=== PATIENT | female | born 1950 | race Caucasian/White ===

== ENCOUNTER 2021-01-19 18:17 | Inpatient (IN) | payer MEDICARE, SELFPAY ==
--- NOTE | 2021-01-19 03:22 | XRR_ITS ---
PROCEDURE INFORMATION: Exam: XR Chest Exam date and time: 01/19/2021 9:10 PM Age: 70 years old Clinical indication: Screening exam; Pre-operative exam; Other: Hip fracture TECHNIQUE: Imaging protocol: XR of the chest. Views: 1 view. COMPARISON: No relevant prior studies available. FINDINGS: Lungs: Unremarkable. No consolidation. Pleural spaces: Unremarkable. No pleural effusion. No pneumothorax. Heart/Mediastinum: Unremarkable. No cardiomegaly. Bones/joints: Unremarkable. XR/XR chest 1V portable [id number] IMPRESSION: No acute findings.
[2021-01-19 18:25] VITALS: BP 190/98; PULSE 78; RESP 16; TEMP 36.3; O2SAT 94; BMI 25.4
--- NOTE | 2021-01-19 19:08 | XRR_ITS ---
PROCEDURE INFORMATION: Exam: XR Left Femur Exam date and time: 01/19/2021 7:11 PM Age: 70 years old Clinical indication: Injury or trauma; Fall; Blunt trauma; Hip; Left TECHNIQUE: Imaging protocol: XR Left femur. Views: 2 views. COMPARISON: No relevant prior studies available. FINDINGS: Bones/joints: Moderate narrowing of the left hip joint space. 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 Soft tissues: Unremarkable. 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 No evidence for acute fracture.
[2021-01-19 19:35] LABS: Basophils # 0.1 10^3/uL (0.0-0.1); Basophils % 0.8 %; Eosinophils # 0.2 10^3/uL (0.0-0.8); Eosinophils % 2.9 %; Hematocrit 40.5 % (37.0-47.0); Hemoglobin 13.4 g/dL (11.5-15.3); Lymphocytes # 1.5 10^3/uL (0.8-4.8); Lymphocytes % 25.7 %; Mean Corpuscular HGB Conc 33.1 g/dL (30.0-36.0); Mean Corpuscular Hemoglobin 28.9 pg (28.0-34.0); Mean Corpuscular Volume 87.5 fL (81-99); Mean Platelet Volume 10.4 fL (7.4-10.4); Monocytes # 0.6 10^3/uL (0.2-0.9); Monocytes % 10.5 %; Neutrophils % 59.3 %; Nucleated Red Blood Cells % 0 %; Platelet Count 202 10^3/cmm (130-400); Red Blood Count 4.63 10^6/uL (4.1-5.3); Red Cell Distribution Width 12.4 % (12.1-15.1); White Blood Count 5.9 10^3/uL (4.0-10.0)
[2021-01-19] MEDS: ondansetron 2 mg/ML SDV 2 mL 4 MG IVP (19:39)
[2021-01-19] MEDS: fentaNYL 50 mcg/mL INJ 2mL IVP (19:39)
--- NOTE | 2021-01-19 19:39 | W.ED.FALL ---
HPI - Fall General: Chief Complaint: Fall Stated Complaint: FELL/LLE INJURY Time Seen by Provider: 01/19/21 18:51 History of Present Illness: MD complaint: fall Onset (ago): hour(s) Fall from: down stairs (#) (2) Fall witnessed: no Place fall occurred: home Loss of consciousness: None Prolonged down time: no Symptoms prior to fall: none Context: tripped/slipped Location of injury: pelvis Location of injury - extremities: Left: thigh Severity: moderate Quality: stabbing Associated symptoms-after fall: Reports difficulty walking; Denies abdominal pain, chest pain, headache(s) or numbness Review of Systems Const: Denies: fever(s) Card: Denies: chest pain Resp: Denies: dyspnea GI: Denies: abdominal pain Neuro: Reports: difficulty walking; Denies: headache(s) Physical Exam Const: COMMON NORMALS: no acute distress, patient oriented x3 and alert HENMT: COMMON NORMALS: normocephalic HEAD & SCALP: normocephalic Eye: COMMON NORMALS: Equal, round and reactive pupils present and EOMs intact bilaterally PUPIL: Yes Equal, round and reactive pupils present Chest: COMMONS NORMALS: normal inspection of the chest Resp: COMMON NORMALS: normal respiratory effort, No use of accessory muscles and clear to auscultation bilaterally AUSCULTATION: clear to auscultation bilaterally Cardio: COMMON NORMALS: regular rate and regular rhythm RATE: regular rate RHYTHM: regular rhythm GI: COMMON NORMALS: Normal to inspection, nondistended, normoactive bowel sounds present, Soft to palpation and no masses PALPATION: Yes Soft to palpation Extremity: LEFT LOWER EXTREMITY: Yes hip joint (+ log roll) Left hip: Yes palpation (tenderness) Neuro: COMMON NORMALS: patient oriented x3 SENSORIUM/ORIENTATION: Yes alert Course Consultations: Consultation #1: tony Consultation #2: rocio Vital Signs: Vital signs: Vital Signs Temperature 97.9 F 01/19/21 23:17 Pulse Rate 70 01/19/21 23:17 Respiratory Rate 20 H 01/19/21 23:17 Blood Pressure 152/74 01/19/21 23:17 Pulse Oximetry 93 01/19/21 23:17 MDM - Fall MDM Narrative: Medical decision making narrative: Initial x-ray is read as negative. There is a slight cortical disruption at the femoral neck with some haziness. CT ordered, and shows a nondisplaced femoral neck fracture. Consulted orthopedics from the ER. He will see tomorrow. Hospitalist will admit and see tonight. Lab Data: Labs: Lab Results 01/19/21 01/19/21 01/19/21 Range/Units 19:25 19:25 19:25 WBC 5.9 (4.0-10.0) 10^3/ uL RBC 4.63 (4.1-5.3) 10^6/u L Hgb 13.4 (11.5-15.3) g/dL Hct 40.5 (37.0-47.0) % MCV 87.5 (81-99) fL MCH 28.9 (28.0-34.0) pg MCHC 33.1 (30.0-36.0) g/dL RDW 12.4 (12.1-15.1) % Plt Count 202 (130-400) 10^3/c mm MPV 10.4 (7.4-10.4) fL Neut % (Auto) 59.3 % Lymph % (Auto) 25.7 % Baldwin % (Auto) 10.5 % Eos % (Auto) 2.9 % Baso % (Auto) 0.8 % Neut # (Auto) 3.50 (1.8-7.7) 10^3/u L Lymph # (Auto) 1.5 (0.8-4.8) 10^3/u L Baldwin # (Auto) 0.6 (0.2-0.9) 10^3/u L Eos # (Auto) 0.2 (0.0-0.8) 10^3/u L Baso # (Auto) 0.1 (0.0-0.1) 10^3/u L Nucleated RBC % (a uto) 0 % Nucleated RBCs # 0.0 /100WBC PT INR APTT Sodium 136 (136-145) mmol/L Potassium 4.9 (3.5-5.1) mmol/L Chloride 98 (98-107) mmol/L Carbon Dioxide 28 (22-29) mmol/L Anion Gap 14.9 (5-19) BUN 15 (8-23) mg/dL Creatinine 0.5 (0.5-0.9) mg/dL GFR Calculation Not Reportable Glucose 209 H (65-115) mg/dL Calculated Osmolal ity 289 (285-295) mOsm/k g Calcium 9.5 (8.5-10.5) mg/dL Total Bilirubin 0.3 (0.15-1.2) mg/dL AST 19 (0-32) U/L ALT 21 (0-33) U/L Alkaline Phosphata se 53 (35-105) IU/L Total Protein 7.5 (6.6-8.7) g/dL Albumin 4.4 (3.5-5.2) g/dL Globulin 3.1 (1.3-4.6) g/dL Urine Color Straw (Yellow) Urine Appearance Clear (CLEAR) Urine pH 7 (5-7) Ur Specific Gravit y 1.005 (1.005-1.030) Urine Protein Neg (Negative) Urine Glucose (UA) Trace H (Normal) Urine Ketones Negative (Negative) Urine Blood Neg (Negative) Urine Nitrate Negative (Negative) Urine Bilirubin Neg (Negative) Urine Urobilinogen Norm (Negative) mg/dL Ur Leukocyte Ela ase Negative (Negative) 01/19/21 01/19/21 Range/Units 20:28 20:46 WBC (4.0-10.0) 10^3/ uL RBC (4.1-5.3) 10^6/u L Hgb (11.5-15.3) g/dL Hct (37.0-47.0) % MCV (81-99) fL MCH (28.0-34.0) pg MCHC (30.0-36.0) g/dL RDW (12.1-15.1) % Plt Count (130-400) 10^3/c mm MPV (7.4-10.4) fL Neut % (Auto) % Lymph % (Auto) % Baldwin % (Auto) % Eos % (Auto) % Baso % (Auto) % Neut # (Auto) (1.8-7.7) 10^3/u L Lymph # (Auto) (0.8-4.8) 10^3/u L Baldwin # (Auto) (0.2-0.9) 10^3/u L Eos # (Auto) (0.0-0.8) 10^3/u L Baso # (Auto) (0.0-0.1) 10^3/u L Nucleated RBC % (a uto) % Nucleated RBCs # /100WBC PT Cancelled 13.30 INR Cancelled 0.98 APTT Cancelled 23.5 L Sodium (136-145) mmol/L Potassium (3.5-5.1) mmol/L Chloride (98-107) mmol/L Carbon Dioxide (22-29) mmol/L Anion Gap (5-19) BUN (8-23) mg/dL Creatinine (0.5-0.9) mg/dL GFR Calculation Glucose (65-115) mg/dL Calculated Osmolal ity (285-295) mOsm/k g Calcium (8.5-10.5) mg/dL Total Bilirubin (0.15-1.2) mg/dL AST (0-32) U/L ALT (0-33) U/L Alkaline Phosphata se (35-105) IU/L Total Protein (6.6-8.7) g/dL Albumin (3.5-5.2) g/dL Globulin (1.3-4.6) g/dL Urine Color (Yellow) Urine Appearance (CLEAR) Urine pH (5-7) Ur Specific Gravit y (1.005-1.030) Urine Protein (Negative) Urine Glucose (UA) (Normal) Urine Ketones (Negative) Urine Blood (Negative) Urine Nitrate (Negative) Urine Bilirubin (Negative) Urine Urobilinogen (Negative) mg/dL Ur Leukocyte Ela ase (Negative) Discharge Plan Discharge Patient Disposition: Admitted As Inpatient Admit Provider: Jessica Rico Clinical Impression: Hip fracture, left Qualifiers: Encounter type: initial encounter Fracture type: closed Qualified Code(s): S72.002A - Fracture of unspecified part of neck of left femur, initial encounter for closed fracture Condition: Stable Coding Level of Care Code ED Agricultural Engineering Technicians for [facility] Fwd Exam Comprehensive
[2021-01-19 19:41] VITALS: BP 126/68; PULSE 78; RESP 15; TEMP 36.8; O2SAT 99
[2021-01-19 19:42] LABS: Add Urine Microscopic? NO
[2021-01-19 19:43] LABS: Bilirubin Urine Neg (Negative); Blood Urine Neg (Negative); Charge for UA Resulting for Rev; Glucose Urine UA Trace (Normal); Ketones Urine Negative (Negative); Leukocyte Esterase Urine Negative (Negative); Nitrate Urine Negative (Negative); Protein Urine Neg (Negative); Specific Gravity, Urine 1.005 (1.005-1.030); Urine Appearance Clear (CLEAR); Urine Color Straw (Yellow); Urobilinogen Urine Norm (Negative); pH Urine 7 (5-7)
--- NOTE | 2021-01-19 19:45 | CTR_ITS ---
PROCEDURE INFORMATION: Exam: CT Pelvis Without Contrast; Skeletal Exam date and time: 01/19/2021 7:47 PM Age: 70 years old Clinical indication: Injury or trauma; Fall; Blunt trauma (contusions or hematomas); Left; Groin; Additional info: Fall left sided pain TECHNIQUE: Imaging protocol: Computed tomography images of the pelvis without contrast. Exam focused on the skeletal structures. Radiation optimization: All CT scans at this facility use at least one of these dose optimization techniques: automated exposure control; mA and/or kV adjustment per patient size (includes targeted exams where dose is matched to clinical indication); or iterative reconstruction. COMPARISON: No relevant prior studies available. RADIATION DOSE METRICS: Total DLP (mGy-cm): 397.57 FINDINGS: Bladder: There is a Tabares catheter and air in the bladder. Bones/joints: There are degenerative changes across the hip joints. There degenerative changes in the visualized lower lumbar spine. There is a minimal disc bulge at the L4-L5 level which contributes to canal and bilateral neural foraminal narrowing. A nondisplaced hairline fracture through the left femoral neck. Soft tissues: There is mild edema in the soft tissues adjacent to the left femoral neck fracture. CT/CT bony pelvis [id number] IMPRESSION: There is a hairline nondisplaced fracture through the left femoral neck. Radiation Dose CTDIVOL = (mGy): DLP = 397.57 (mGy-cm)
[2021-01-19 19:55] LABS: Alanine Aminotransferase 21 U/L (0-33); Albumin Level 4.4 g/dL (3.5-5.2); Alkaline Phosphatase 53 IU/L (35-105); Anion Gap 14.9 (5-19); Aspartate Amino Transferase 19 U/L (0-32); Blood Urea Nitrogen 15 mg/dL (8-23); Calcium 9.5 mg/dL (8.5-10.5); Carbon Dioxide 28 mmol/L (22-29); Chloride 98 mmol/L (98-107); Creatinine Clr Calc Pharmacy 63.0895; Globulin 3.1 g/dL (1.3-4.6); Glucose 209 mg/dL (65-115); Osmolality Calculated 289 mOsm/kg (285-295); Potassium 4.9 mmol/L (3.5-5.1); Sodium 136 mmol/L (136-145); Total Bilirubin 0.3 mg/dL (0.15-1.2); Total Protein 7.5 g/dL (6.6-8.7)
[2021-01-19 20:59] LABS: INR 0.98 (0.8-1.2)
[2021-01-19 21:00] LABS: Partial Thromboplastin Time 23.5 SECONDS (23.9-36.7)
--- NOTE | 2021-01-19 21:07 | ECG_ITS ---
[facility] Test Date: 2021-01-19 Pat Name: Maddison Zhou Department: Room: 266 Gender: Female Tag Marker: : 1950 Requested By: Hero Marquez Order Number: [id number] Kirsty MD: Andrea Freeman M.D. Measurements Intervals [place] Rate: 72 P: 53 MD: 183 QRS: 21 QRSD: 78 T: 39 QT: 377 QTc: 414 Interpretive Statements SINUS RHYTHM NONSPECIFIC T-WAVE ABNORMALITY No previous ECG available for comparison Electronically Signed On 01-21-2021 0:36:53 CDT by Andrea Freeman M.D. [id number]
--- NOTE | 2021-01-19 21:54 | PM.HP ---
Providers/Chief Complaint Admitting Physician: Jessica Rico MD Chief Complaint: FELL/LLE INJURY History of Present Illness Maddison Zhou is a 70 year old female presented to ER after a fall this evening off 2 steps onto concrete at her sons home. Denies head trauma or LOC found to have a nondisplaced femoral head fracture she is being admitted for pain control and orthopedic evaluation she denies taking prescription medications. Review of Systems General: Reports: 10 or more systems reviewed and unremarkable except in HPI and below Const: Denies: fever(s) or chills Eyes: Denies: change in vision ENMT: Denies: throat pain Card: Denies: chest pain or palpitations Resp: Denies: dyspnea or productive cough GI: Denies: abdominal pain : Denies: flank pain Musc: Reports: joint pain Skin/Breast: Denies: rash or pruritus Neuro: Denies: headache(s) or numbness in extremities Medications/Allergies Allergies Allergy/AdvReac Type Severity Reaction Status Date / Time chlorpromazine Allergy Unknown Verified 01/19/21 18:37 [From Thorazine] Penicillins Allergy Unknown Verified 01/19/21 18:37 Vitals/I&O/Wt Last Vital Signs Temp 98.2 F 01/19/21 19:41 Pulse 78 01/19/21 19:41 Resp 15 01/19/21 19:41 BP 126/68 01/19/21 19:41 Pulse Ox 99 01/19/21 19:41 Weight last 48 hrs Weight 153 lb Physical Exam Const: COMMON NORMALS: no acute distress Resp: COMMON NORMALS: normal respiratory effort and No retractions Cardio: COMMON NORMALS: regular rate and regular rhythm GI: COMMON NORMALS: Soft to palpation and non-tender Neuro: COMMON NORMALS: patient oriented x3 and CN's II-XII intact bilaterally Psych: COMMON NORMALS: mental status grossly normal Urinary Catheter Management^: 2-way Urethral: Cath Placed During This Visit: yes Urinary Catheter Date of Insertion: 01/19/21 Urinary Catheter Time of Insertion: 19:34 Data : 01/19/21 19:25 01/19/21 19:25 Other data: CT Pelvis CT/CT bony pelvis [id number] IMPRESSION: There is a hairline nondisplaced fracture through the left femoral neck. A&P Assessment and plan (1) Hip fracture, left: admit to med surg NPO after midnight PRN analgesics Orthopedic eval in AM Status: Acute Attestations Medical Necessity Statement*: Maddison Zhou's hospital stay will require greater than 2 midnights for hip fracture Coding Level of Care Code Acute Shank Paperer for [facility] Fwd Exam Detailed Diagnoses Hip fracture, left S72.002A
[2021-01-19 21:58] VITALS: BP 150/60; PULSE 65; RESP 16; TEMP 36.8; O2SAT 95
[2021-01-19 22:31] VITALS: BP 155/75; PULSE 68; RESP 18; TEMP 36; O2SAT 94
[2021-01-19] MEDS: ketorolac 30 mg/mL INJ IVP (23:08)
[2021-01-19 23:17] VITALS: BP 152/74; PULSE 70; RESP 20; TEMP 36.6; O2SAT 93
[2021-01-20] VITALS (19 sets, daily range): BP systolic 112–161; BP diastolic 48–83; PULSE 50–86; RESP 15–20; TEMP 36.4–37.1; O2SAT 91–96
--- NOTE | 2021-01-20 | SCC_ITS ---
Procedure Done: left CRPP femoral neck 52.3 seconds of fluoroscopic guidance, for a cumulative dose of 5.89 mGy, was provided to Dr. Key by the radiology department. C-arm images of the LEFT hip were saved for the patient's permanent record. [facility]
[2021-01-20] MEDS: acetaminophen 325 mg Tablet 650 MG PO (00:41)
[2021-01-20] MEDS: ketorolac 30 mg/mL INJ IVP (05:10)
--- NOTE | 2021-01-20 07:05 | P.CONIM_ITS ---
Providers/Reason For Consult Consulting Physican/Specialty*: hospitalist Reason for Consult*: left femoral neck fracture Attending Physician: Jessica Rico MD History of Present Illness History of Present Illness Maddison Zhou is a 70 year old female presented to ER after a fall this evening off 2 steps onto concrete at her sons home. Denies head trauma or LOC found to have a nondisplaced femoral head fracture she is being admitted for pain control and orthopedic evaluation she denies taking prescription medications. Review of Systems General: Reports: 10 or more systems reviewed and unremarkable except in HPI and below Const: Denies: fever(s) or chills Eyes: Denies: change in vision ENMT: Denies: throat pain Card: Denies: chest pain or palpitations Resp: Denies: dyspnea or productive cough GI: Denies: abdominal pain : Denies: flank pain Musc: Reports: joint pain Skin/Breast: Denies: rash or pruritus Neuro: Reports: difficulty walking; Denies: headache(s) or numbness in extremities Meds/Allergies Home Medications and Allergies Allergies Allergy/AdvReac Type Severity Reaction Status Date / Time Opioids - Morphine Analogues Allergy Severe Unknown Verified 01/19/21 22:34 chlorpromazine Allergy Unknown Verified 01/19/21 18:37 [From Thorazine] Penicillins Allergy Unknown Verified 01/19/21 18:37 Current Medications Current Medications Generic Name Dose Route Start Last Admin Trade Name Freq PRN Reason Stop Dose Admin Acetaminophen 650 mg 01/19/21 21:52 01/20/21 00:41 Acetaminophen 325 Mg Tablet PO 650 mg Q6H PRN Administration Mild/Mod Pain Or Temp >/= 101 Ketorolac Tromethamine 30 mg 01/19/21 23:07 01/20/21 05:10 Ketorolac 30 Mg/Ml Inj IVP 01/24/21 23:06 30 mg Q6H PRN Administration MODERATE PAIN Vitals/I&O/Wt Last Vital Signs Temp 97.9 F 01/20/21 03:17 Pulse 72 01/20/21 03:17 Resp 20 H 01/20/21 03:17 BP 119/69 01/20/21 03:17 Pulse Ox 95 01/20/21 03:17 01/19/21 01/20/21 01/20/21 22:59 06:59 14:59 Output Total 400 / 400 Balance -400 / -400 Weight last 48 hrs Weight 153 lb Physical Exam Narrative: EXAM NARRATIVE: CONSTITUTIONAL: The patient is a normal appearing [] in no apparent distress. GENERAL: Patient in no acute distress. CARDIAC: Regular rate and rhythm. CHEST: Normal inspiratory effort, normal respiratory rate. ABDOMEN: Soft and nontender. SKIN: Clear, warm and intact. NEURO?PSYCH: The patient is alert and oriented to person, place and time. Sensorv /SILT Motor StrengthShoulder abduction C5 5/5Wrist extension C6 5/5Elbow extension C7 5/5Hand Sulfate Drier Machine Operator C8 5/5Finger abduction T15/5 Radial/ Ulnar/ Median n intact LowerSensory (SILT)Motor StrengthHin flexion L2/3Ant/inner thigh 5/5Hip adduction L2/3 5/5Knee extension L4 Lat thigh, 5/5Toe dorsiflexion L5 5/5Ankle dorsiflexion L5/ K64Unbhkhg flexion S1 5/5 DTRBleeps 2+Triceps 2+Brachioradialis 2+Patellar 2+Achilles 2+ MUSCULOSKELETAL: [] UPPEREXTREMITIES: The patient had full active ROM in fingers, wrist, elbow, and shoulder. The patient demonstrated ability to fully flex/extend/abduct/adduct fingers, make ok sign, cross 2nd/3rd digits, extend 1st digit fully.. Radial pulse 2+, CR<2 seconds. LOWER EXTREMITIES: Pt has full, active ROM of toes, ankle, knee, and hip. Dorsalis pedis/posterior tibialis pulses 2+, CR<2 seconds. SPINE: Skin warm, dry, intact. Urinary Catheter Management^: 2-way Urethral: Cath Placed During This Visit: yes Urinary Catheter Date of Insertion: 01/19/21 Urinary Catheter Time of Insertion: 19:34 A&P Assessment and plan (1) Hip fracture, left: Status: Acute Qualifiers: Encounter type: initial encounter Fracture type: closed Qualified Code(s): S72.002A - Fracture of unspecified part of neck of left femur, initial encounter for closed fracture Consult Attestations Medical Necessity Statement: hip fracture Coding Level of Care Code Acute Restaurant Line Cook for [facility] Diagnoses Hip fracture, left S72.002A Encounter type: initial encounter Fracture type: closed
--- NOTE | 2021-01-20 09:58 | ANES.PREANE2 ---
Pre-Anesthetic Assessment Pre-Anesthetic Assessment: Height/Weight: Height 1.65 m Weight 69.4 kg Temp Pulse Resp BP Pulse Ox 98.8 F 65 16 161/68 95 01/20/21 09:32 01/20/21 09:32 01/20/21 09:32 01/20/21 09:32 01/20/21 09:32 Proposed Procedure: Operation Date: 01/20/21 19:25 Proposed Procedures p Hip Screw Closed Reduction Percutaneous Pinning Hip Screw(Left) - Dg H Yesi, DO Was Beta Latoya taken within 24 hours: N/A Was Clonidine taken within 24 hours: N/A Social: Social History: No alcohol and No tobacco Exam: Pre-Anes Outpt Exam: alert, oriented x 3, clear to auscultation bilaterally and regular rate & rhythm Airway: Submandibular: WNL Cervical ROM: WNL MP: 2 Dentition: False History/ROS: No significant history except as noted Anesthetic Plan: ASA status: 2 Anesthesia: General Risk of > 500 ml blood loss (7ml/kg in children): No Meds/Allergies Current Medications: Current Medications Generic Name Dose Route Start Last Admin Trade Name Freq PRN Reason Stop Dose Admin Acetaminophen 650 mg 01/19/21 21:52 01/20/21 00:41 Acetaminophen 32 5 Mg Tablet PO 650 mg Q6H PRN Administration Mild/Mod Pain Or Temp >/= 101 Ketorolac Trometha mine 30 mg 01/19/21 23:07 01/20/21 05:10 Ketorolac 30 Mg/ Ml Inj IVP 01/24/21 23:06 30 mg Q6H PRN Administration MODERATE PAIN Data Anesthesia CBC & Chem 7: 01/19/21 19:25 01/19/21 19:25 Other Labs: Laboratory Results - last 48 hr 01/19/21 01/19/21 01/19/21 19:25 19:25 19:25 WBC 5.9 RBC 4.63 Hgb 13.4 Hct 40.5 MCV 87.5 MCH 28.9 MCHC 33.1 RDW 12.4 Plt Count 202 MPV 10.4 Neut % (Auto) 59.3 Lymph % (Auto) 25.7 [place] % (Auto) 10.5 Eos % (Auto) 2.9 Baso % (Auto) 0.8 Neut # (Auto) 3.50 Lymph # (Auto) 1.5 [place] # (Auto) 0.6 Eos # (Auto) 0.2 Baso # (Auto) 0.1 Nucleated RBC % (auto) 0 Nucleated RBCs # 0.0 PT INR APTT Sodium 136 Potassium 4.9 Chloride 98 Carbon Dioxide 28 Anion Gap 14.9 BUN 15 Creatinine 0.5 GFR Calculation Not Reportable Glucose 209 H Calculated Osmolality 289 Calcium 9.5 Total Bilirubin 0.3 AST 19 ALT 21 Alkaline Phosphatase 53 Total Protein 7.5 Albumin 4.4 Globulin 3.1 Urine Color Straw Urine Appearance Clear Urine pH 7 Ur Specific [place] 1.005 Urine Protein Neg Urine Glucose (UA) Trace H Urine Ketones Negative Urine Blood Neg Urine Nitrate Negative Urine Bilirubin Neg Urine Urobilinogen Norm Ur Leukocyte Esterase Negative 01/19/21 01/19/21 20:28 20:46 WBC RBC Hgb Hct MCV MCH MCHC RDW Plt Count MPV Neut % (Auto) Lymph % (Auto) [place] % (Auto) Eos % (Auto) Baso % (Auto) Neut # (Auto) Lymph # (Auto) [place] # (Auto) Eos # (Auto) Baso # (Auto) Nucleated RBC % (auto) Nucleated RBCs # PT Cancelled 13.30 INR Cancelled 0.98 APTT Cancelled 23.5 L Sodium Potassium Chloride Carbon Dioxide Anion Gap BUN Creatinine GFR Calculation Glucose Calculated Osmolality Calcium Total Bilirubin AST ALT Alkaline Phosphatase Total Protein Albumin Globulin Urine Color Urine Appearance Urine pH Ur Specific [place] Urine Protein Urine Glucose (UA) Urine Ketones Urine Blood Urine Nitrate Urine Bilirubin Urine Urobilinogen Ur Leukocyte Esterase Cardiac Studies: No Data to Display
[2021-01-20] MEDS: sodium chloride 0.9% 1,000 ML 30 ML IV (10:02)
--- NOTE | 2021-01-20 10:24 | PC.CHAP ---
Pastoral Care Encounter/Spiritual Assessment Type of Contact [] Declined registered route associate visit [] Patient/Family/Request visit [] Outpatient visit [x] Follow-up visit [] Physician referral [] Code/Alert [] Routine visit [] Staff referral [] Actively dying [] Patient sleeping [] Family support [] [] Out of room [] Palliative care [] [] Receiving care in room [] Pre-surgical visit [] Trauma [] Long length of stay [] ICU visit [] Other: Relational/Emotional Strength [] Patient feels connected with others/family/visitors/staff [] Distress [] Loneliness/isolation [] Abandonment Spirituality of Patient [] Person of Loly [] Attends Episcopalian of their Loly [] Believes in Prayer [] Reads Bible or Mandaen materials [] There are Spiritual issues to be addressed Eyeglass Assembler Interventions [] Prayer [] Active listening [] Non-anxious presence [] Spiritual/emotional support [] Crisis/trauma care [] Spiritual counseling [] Bereavement support [] Provided bereavement packet [] Provided Bible/devotional materials [] Provided toy/stuffed animal, coloring book to patient or family member [] Provided Communion [] Anointing/[place] [] Salvation [] Completed spiritual assessment [] Other: Impact on Illness or Injury [] Angry [] Fearful [] Anxious [] Often cries [] Exhaustion [] Unable to work [] Unable to attend mormonism [] Unable to walk/stand [] Unable to read [] Unable to drive [] Unable to eat/drink [] Unable to sleep [] Unable to be with family [] Patient intubated [] Other: Summary Time spent with patient
--- NOTE | 2021-01-20 12:16 | P.PN_ITS ---
Subjective Subjective: Interval history: Patient was seen preoperatively, her pain is well controlled, denies a cardiovascular history, no history of strokes, no history of DVTs or PEs, no history of smoking, denies any significant medical history, she tells me unfortunately she fell off 2 steps in the evening, at her son's home, onto concrete, immediately having left hip pain Vitals/I&O/Wt Last Vital Signs Temp 98.8 F 01/20/21 09:32 Pulse 65 01/20/21 09:32 Resp 16 01/20/21 09:32 BP 161/68 01/20/21 09:32 Pulse Ox 95 01/20/21 09:32 01/19/21 01/20/21 01/20/21 22:59 06:59 14:59 Intake Total 0 / 0 Output Total 400 / 400 Balance -400 / -400 0 / 0 Weight last 48 hrs Weight 69.4 kg Physical Exam Const: COMMON NORMALS: no acute distress and patient oriented x3 Resp: COMMON NORMALS: normal respiratory effort, No retractions, No use of accessory muscles and clear to auscultation bilaterally AUSCULTATION: clear to auscultation bilaterally Cardio: COMMON NORMALS: regular rate, regular rhythm, S1 normal heart sound present and S2 normal heart sound present RATE: regular rate RHYTHM: regular rhythm HEART SOUNDS: S1 normal heart sound present and S2 normal heart sound present GI: COMMON NORMALS: Normal to inspection, nondistended, normoactive bowel sounds present, Soft to palpation, non-tender, No hepatosplenomegaly present, no masses and no bruits PALPATION: Yes Soft to palpation and Yes No hepatosplenomegaly present Extremity: COMMON NORMALS: no pedal edema Neuro: COMMON NORMALS: patient oriented x3 Psych: COMMON NORMALS: mental status grossly normal Urinary Catheter Management^: 2-way Urethral: Cath Placed During This Visit: yes Urinary Catheter Date of Insertion: 01/19/21 Urinary Catheter Time of Insertion: 19:34 Data : 01/19/21 19:25 01/19/21 19:25 A&P Assessment and plan (1) Hip fracture, left: [facility] on consult Pain control anticoagulation as per orthopedic service Monitor for postoperative fevers, confusion, anemia Monitor blood pressures, monitor vitals PT OT Discharge location based on PT OT recommendations and postop evaluation Status: Acute Qualifiers: Encounter type: initial encounter Fracture type: closed Qualified Code(s): S72.002A - Fracture of unspecified part of neck of left femur, initial encounter for closed fracture Attestations Medical Necessity Statement*: Patient requires hospitalization, for left hip fracture Coding Level of Care Code Acute Dean Of Faculty for [facility] Diagnoses Hip fracture, left S72.002A Encounter type: initial encounter Fracture type: closed
--- NOTE | 2021-01-20 13:38 | XR_ITS ---
WS: [id number] Left hip, C-arm fluoroscopy views, 01/20/2021 Clinical Data: OR PICS Comparison: Left thigh and femur, 01/19/2021. Findings: The impacted left subcapital fracture is been reduced with the aid of orthopedic pins. XR/XR hip LT 2-3V wo/w pel* [id number] Impression: Reduction of left hip subcapital fracture.
--- NOTE | 2021-01-20 13:45 | PM.OP ---
Operative Report Date of procedure: January 20, 2021 Pre-op Diagnosis: left femoral neck fracture Post-op diagnosis: same Procedure Done: CRPP left femoral neck fracture Condition: stable Disposition: PACU
[2021-01-20] MEDS: fentaNYL 50 mcg/mL INJ 2mL IVP (13:47)
--- NOTE | 2021-01-20 13:47 | PM.OP ---
Operative Report Date of procedure: January 20, 2021 Pre-op Diagnosis: left femoral neck fracture Post-op diagnosis: same Procedure Done: left CRPP femoral neck Surgeon: Dg Key Estimated blood loss (mL): 10 Condition: stable Disposition: PACU Procedure: closed reduction percutaneous screw of the left hip Is brought to the operative suite placed on the fracture table after undergoing anesthesia. All areas impingement well-padded. Skin is made on the lateral aspect of the greater trochanter. Starting pins were inserted in the center inferior portion of the femoral neck. A anterior superior and a posterior superior wire was placed. The wires were measured and the screws were placed. After the screws were placed the AP and lateral x-rays were taken to ensure that the fracture and hardware were in prepositions. Wounds were then irrigated. Wound was closed with Vicryl and ra. Sterile dressings were applied and patient was transferred to the PACU in stable condition.
[2021-01-20] MEDS: acetaminophen 1,000 MG/100 ML PIGGYBACK 400 MG IV (13:48)
--- NOTE | 2021-01-20 14:25 | SUR.PHASEI ---
PT SLEEPS IF NOT DISTURBED STATES PAIN IS ( MUCH BETTER BUT STILL ACHES_ PT SLEEPS IF NOT DISTURBED LT THIGH 1 SITE D/I WITH SMALL RED SPOT TO DRESSING, GONSALEZ TO DD WITH YELLOW URINE NOTED.
[2021-01-20] MEDS: HYDROcodone-acetaminophen 5-325 mg Tablet PO ×2 (15:21→20:47)
--- NOTE | 2021-01-20 15:24 | ANE.PACU2 ---
Inpatient post-anesthesia follow up: Airway intact: Yes Vital signs: Temperature 98.6 F Pulse Rate [Monito r] 78 Pulse Rate 62 Respiratory Rate 19 Blood Pressure [Ri ght Arm] 190/98 Blood Pressure 134/48 Pulse Oximetry 94 Oxygen Delivery Me thod Nasal Cannula Oxygen Flow Rate 3 Fraction of Inspir ed Oxygen Hydration adequate: Yes Nausea and vomiting: No Pain level: 2 Mental status: Baseline
[2021-01-21] MEDS: enoxaparin 40 mg/0.4 mL Syringe SUBCUT (01:24)
[2021-01-21] MEDS: HYDROcodone-acetaminophen 5-325 mg Tablet PO ×4 (02:49→21:21)
[2021-01-21 04:23] VITALS: BP 112/71; PULSE 73; RESP 18; TEMP 36.8; O2SAT 92
--- NOTE | 2021-01-21 06:08 | P.PN_ITS ---
Subjective Subjective: Interval history: Patient's pain controlled. No complaints this morning. Vitals/I&O/Wt Last Vital Signs Temp 98.3 F 01/21/21 04:23 Pulse 73 01/21/21 04:23 Resp 18 01/21/21 04:23 BP 112/71 01/21/21 04:23 Pulse Ox 92 01/21/21 04:23 01/20/21 01/20/21 01/21/21 14:59 22:59 06:59 Intake Total 300 / 300 646.5 / 946.5 Output Total 60 / 60 700 / 760 1000 / 1760 Balance 240 / 240 -53.5 / 186.5 -1000 / -813.5 Weight last 48 hrs Weight 153 lb Physical Exam Narrative: EXAM NARRATIVE: Patient resting comfortably bed moving her hip no complaints. Urinary Catheter Management^: 2-way Urethral: Cath Placed During This Visit: yes Urinary Catheter Date of Insertion: 01/19/21 Urinary Catheter Time of Insertion: 19:34 Data : 01/19/21 19:25 01/19/21 19:25 A&P Assessment and plan (1) Hip fracture, left: Weight-bear as tolerated left hip Up with physical therapy. Status: Acute Qualifiers: Encounter type: initial encounter Fracture type: closed Qualified Code(s): S72.002A - Fracture of unspecified part of neck of left femur, initial encounter for closed fracture Attestations Medical Necessity Statement*: Up with physical therapy. If she has pain contr olled and is able to get around then from an orthopedic standpoint she is able to discharge from my standpoint. Coding Level of Care Code Acute Corporate Real Estate Manager for Charleen Gaviria Diagnoses Hip fracture, left S72.002A Encounter type: initial encounter Fracture type: closed
[2021-01-21 06:23] LABS: Basophils % 0.3 %; Eosinophils % 0.2 %; Hematocrit 36.8 % (37.0-47.0); Hemoglobin 11.9 g/dL (11.5-15.3); Lymphocytes # 1.2 10^3/uL (0.8-4.8); Mean Corpuscular HGB Conc 32.3 g/dL (30.0-36.0); Mean Corpuscular Hemoglobin 28.7 pg (28.0-34.0); Mean Corpuscular Volume 88.7 fL (81-99); Mean Platelet Volume 10.4 fL (7.4-10.4); Monocytes # 0.7 10^3/uL (0.2-0.9); Monocytes % 11.2 %; Neutrophils # 4.13 10^3/uL (1.8-7.7); Neutrophils % 67.8 %; Nucleated Red Blood Cells % 0 %; Platelet Count 191 10^3/cmm (130-400); Red Blood Count 4.15 10^6/uL (4.1-5.3); Red Cell Distribution Width 12.2 % (12.1-15.1); White Blood Count 6.1 10^3/uL (4.0-10.0)
--- NOTE | 2021-01-21 06:29 | PC.NURSE ---
Felix Catheter Patient's felix catheter removed per hospital protocol. Patient post-op day 1 on a left hip fracture repair. Felix catheter had about 200mL in bag at removal. Patient tolerated removal of felxi catheter well.
[2021-01-21 06:49] LABS: Alanine Aminotransferase 14 U/L (0-33); Albumin Level 3.6 g/dL (3.5-5.2); Alkaline Phosphatase 46 IU/L (35-105); Anion Gap 12.6 (5-19); Aspartate Amino Transferase 11 U/L (0-32); Blood Urea Nitrogen 12 mg/dL (8-23); Calcium 8.2 mg/dL (8.5-10.5); Carbon Dioxide 25 mmol/L (22-29); Chloride 101 mmol/L (98-107); Globulin 2.5 g/dL (1.3-4.6); Glucose 182 mg/dL (65-115); Osmolality Calculated 282 mOsm/kg (285-295); Phosphorus 3.5 mg/dL (2.5-4.5); Potassium 4.6 mmol/L (3.5-5.1); Sodium 134 mmol/L (136-145); Total Bilirubin 0.4 mg/dL (0.15-1.2); Total Protein 6.1 g/dL (6.6-8.7)
[2021-01-21 06:51] LABS: Creatinine Clr Calc Pharmacy 63.0895
[2021-01-21 08:15] VITALS: BP 112/71; PULSE 63; RESP 19; TEMP 36.8; O2SAT 94
--- NOTE | 2021-01-21 12:01 | PC.NURSE ---
Tick Patient removed tick from right upper shoulder, skin slightly red. Reported to primary care nurse.
--- NOTE | 2021-01-21 12:05 | PC.NURSE ---
Student nurses came to nurse and stated that during the bed bath they found a tick on the patients shoulder. They removed the tick from the patient. Notified physician.
--- NOTE | 2021-01-21 12:09 | P.PN_ITS ---
Subjective Subjective: Interval history: Patient was seen this morning, at bedside, she is work with physical therapy, she is not sure if she is ready to go home today, no fevers, no nausea, no vomiting, pain is well controlled Vitals/I&O/Wt Last Vital Signs Temp 98.3 F 01/21/21 08:15 Pulse 63 01/21/21 08:15 Resp 19 H 01/21/21 08:15 BP 112/71 01/21/21 08:15 Pulse Ox 94 01/21/21 08:15 01/20/21 01/21/21 01/21/21 22:59 06:59 14:59 Intake Total 646.5 / 946.5 480 / 480 Output Total 700 / 760 1200 / 1960 Balance -53.5 / 186.5 -1200 / -1013.5 480 / 480 Weight last 48 hrs Weight 69.4 kg Physical Exam Const: COMMON NORMALS: no acute distress and patient oriented x3 Neck/C-Spine: COMMON NORMALS: no JVD Resp: COMMON NORMALS: normal respiratory effort, No retractions, No use of accessory muscles and clear to auscultation bilaterally AUSCULTATION: clear to auscultation bilaterally Cardio: COMMON NORMALS: no JVD, regular rate, regular rhythm, S1 normal heart sound present and S2 normal heart sound present RATE: regular rate RHYTHM: regular rhythm HEART SOUNDS: S1 normal heart sound present and S2 normal heart sound present GI: COMMON NORMALS: Normal to inspection, nondistended, normoactive bowel sounds present, Soft to palpation, non-tender and No hepatosplenomegaly present PALPATION: Yes Soft to palpation and Yes No hepatosplenomegaly present Extremity: COMMON NORMALS: no pedal edema Neuro: COMMON NORMALS: patient oriented x3 Psych: COMMON NORMALS: mental status grossly normal Urinary Catheter Management^: 2-way Urethral: Cath Placed During This Visit: yes, but has since been removed by the nurse Reason for Continuing Indwelling Catheter: Decision to DC Catheter Urinary Catheter Date of Insertion: 01/19/21 Urinary Catheter Time of Insertion: 19:34 Date Urinary Catheter Removed: 01/21/21 Time Urinary Catheter Discontinued: 06:30 Data : 01/21/21 05:45 01/21/21 05:45 A&P Assessment and plan (1) Hip fracture, left: Currently admitted to [facility] for orthopedic service on consult Status post closed reduction percutaneous screw of the left hip Pain control anticoagulation as per orthopedic service Monitor for postoperative fevers, confusion, anemia Monitor blood pressures, monitor vitals PT OT Discharge location based on PT OT recommendations and postop evaluation, discharged home Status: Acute Qualifiers: Encounter type: initial encounter Fracture type: closed Qualified Code(s): S72.002A - Fracture of unspecified part of neck of left femur, initial encounter for closed fracture Additional A&P Information Tick was found on the back, engorged, removed by nursing staff, will give doxycycline 200 mg once for prophylaxis Attestations Medical Necessity Statement*: Patient requires hospitalization postoperatively for left hip fracture Coding Level of Care Code Acute Equipment Processer Storage for [facility] Diagnoses Hip fracture, left S72.002A Encounter type: initial encounter Fracture type: closed
[2021-01-21] MEDS: doxycycline 100 mg Tablet 200 MG PO (14:14)
[2021-01-21 19:59] VITALS: BP 136/73; PULSE 71; RESP 18; TEMP 36; O2SAT 93
[2021-01-21 20:59] VITALS: PULSE 77; RESP 18; O2SAT 97
[2021-01-21 21:05] VITALS: PULSE 78
[2021-01-21] MEDS: clindamycin 600 MG/50 ML PREMIX 100 MG IV (21:16)
[2021-01-22] VITALS (7 sets, daily range): BP systolic 122–155; BP diastolic 69–79; PULSE 59–64; RESP 16–20; TEMP 36.5–37.1; O2SAT 91–95
[2021-01-22] MEDS: enoxaparin 40 mg/0.4 mL Syringe SUBCUT (02:09)
[2021-01-22] MEDS: HYDROcodone-acetaminophen 5-325 mg Tablet PO ×2 (02:15→12:44)
[2021-01-22] MEDS: omega-3 fatty acids 1,000 mg Capsule 1000 MG PO (05:20)
[2021-01-22] MEDS: aspirin 81 mg EC Tablet PO (05:20)
[2021-01-22] MEDS: clindamycin 600 MG/50 ML PREMIX 100 MG IV (05:20)
[2021-01-22 06:05] LABS: Basophils % 0.4 %; Eosinophils # 0.3 10^3/uL (0.0-0.8); Eosinophils % 5.9 %; Hematocrit 35.1 % (37.0-47.0); Hemoglobin 11.3 g/dL (11.5-15.3); Lymphocytes # 1.9 10^3/uL (0.8-4.8); Lymphocytes % 39.1 %; Mean Corpuscular HGB Conc 32.2 g/dL (30.0-36.0); Mean Corpuscular Hemoglobin 28.5 pg (28.0-34.0); Mean Corpuscular Volume 88.6 fL (81-99); Mean Platelet Volume 10.6 fL (7.4-10.4); Monocytes # 0.6 10^3/uL (0.2-0.9); Monocytes % 12.1 %; Neutrophils # 2.07 10^3/uL (1.8-7.7); Neutrophils % 42.3 %; Nucleated Red Blood Cells % 0 %; Platelet Count 173 10^3/cmm (130-400); Red Blood Count 3.96 10^6/uL (4.1-5.3); Red Cell Distribution Width 12.4 % (12.1-15.1); White Blood Count 4.9 10^3/uL (4.0-10.0)
[2021-01-22 06:36] LABS: Alanine Aminotransferase 13 U/L (0-33); Albumin Level 3.4 g/dL (3.5-5.2); Alkaline Phosphatase 43 IU/L (35-105); Anion Gap 12.7 (5-19); Aspartate Amino Transferase 10 U/L (0-32); Blood Urea Nitrogen 12 mg/dL (8-23); Calcium 7.9 mg/dL (8.5-10.5); Carbon Dioxide 26 mmol/L (22-29); Chloride 102 mmol/L (98-107); Globulin 2.3 g/dL (1.3-4.6); Glucose 168 mg/dL (65-115); Magnesium 1.9 mg/dL (1.7-2.3); Osmolality Calculated 286 mOsm/kg (285-295); Potassium 4.7 mmol/L (3.5-5.1); Sodium 136 mmol/L (136-145); Total Bilirubin 0.3 mg/dL (0.15-1.2); Total Protein 5.7 g/dL (6.6-8.7)
[2021-01-22 06:38] LABS: Creatinine Clr Calc Pharmacy 63.0895
--- NOTE | 2021-01-22 10:14 | DCPLANNER ---
Pg 2 of IM updated and reviewed with pt. No questions, copy provided.
--- NOTE | 2021-01-22 11:04 | P.DS_ITS ---
Discharge Providers Date of Admission: 01/19/21 21:08 Date of Discharge: January 22, 2021 Attending Provider at Admission: Jessica Rico MD Attending Provider at Discharge: Aureliano Benites MD Diagnoses at Discharge Discharge Diagnosis (1) Hip fracture, left: Status: Acute Qualifiers: Encounter type: initial encounter Fracture type: closed Qualified Code(s): S72.002A - Fracture of unspecified part of neck of left femur, initial encounter for closed fracture Reason for Visit Reason for Visit: FELL/LLE INJURY Hospital Course Hospital Course This is a 70-year-old female who presents to [facility] due to a mechanical fall, sustained a nondisplaced femoral head fracture, status post left closed reduction percutaneous screw the left hip tolerated procedure well, she was discharged home with home health care. Pain control and anticoagulation as per orthopedic service. She was advised to follow-up with her primary care provider for consideration of starting bisphosphonates. Physical Exam Const: COMMON NORMALS: no acute distress and patient oriented x3 Resp: COMMON NORMALS: normal respiratory effort, No retractions, No use of accessory muscles and clear to auscultation bilaterally AUSCULTATION: clear to auscultation bilaterally Cardio: COMMON NORMALS: regular rate, regular rhythm, S1 normal heart sound present and S2 normal heart sound present RATE: regular rate RHYTHM: regular rhythm HEART SOUNDS: S1 normal heart sound present and S2 normal heart sound present GI: COMMON NORMALS: Normal to inspection, nondistended, normoactive bowel sounds present, Soft to palpation, non-tender and No hepatosplenomegaly present PALPATION: Yes Soft to palpation and Yes No hepatosplenomegaly present Extremity: COMMON NORMALS: no pedal edema Neuro: COMMON NORMALS: patient oriented x3 Urinary Catheter Management^: 2-way Urethral: Cath Placed During This Visit: yes, but has since been removed by the nurse Reason for Continuing Indwelling Catheter: Decision to DC Catheter Urinary Catheter Date of Insertion: 01/19/21 Urinary Catheter Time of Insertion: 19:34 Date Urinary Catheter Removed: 01/21/21 Time Urinary Catheter Discontinued: 06:30 Discharge Data Data Completed and Pending: Completed Studies During Hospitalization Category Date Time Status CT bony pelvis 72 192 Urgent Cat Scan 01/19/21 19:45 Completed XR chest 1V gato ble [id number] Stat Exams 01/19/21 03:22 Completed XR femur LT min 2 V* [id number] Stat Exams 01/19/21 19:08 Completed XR hip LT 2-3V wo /w pel* [id number] Rout ine Exams 01/20/21 13:38 Completed Pending at discharge Category Date Time Status Complete Blood Co unt w/Auto AM LABS Lab 01/23/21 04:00 Ordered Comprehensive Met abolic Panel AM LA BS Lab 01/23/21 04:00 Ordered Magnesium AM LABS Lab 01/23/21 04:00 Ordered Phosphorus AM LAB S Lab 01/23/21 04:00 Ordered Labs from last 24 hours 01/22/21 01/22/21 05:00 05:00 WBC 4.9 RBC 3.96 L Hgb 11.3 L Hct 35.1 L MCV 88.6 MCH 28.5 MCHC 32.2 RDW 12.4 Plt Count 173 MPV 10.6 H Neut % (Auto) 42.3 Lymph % (Auto) 39.1 [place] % (Auto) 12.1 Eos % (Auto) 5.9 Baso % (Auto) 0.4 Neut # (Auto) 2.07 Lymph # (Auto) 1.9 [place] # (Auto) 0.6 Eos # (Auto) 0.3 Baso # (Auto) 0.0 Nucleated RBC % (a uto) 0 Nucleated RBCs # 0.0 Sodium 136 Potassium 4.7 Chloride 102 Carbon Dioxide 26 Anion Gap 12.7 BUN 12 Creatinine 0.4 L GFR Calculation Not Reportable Glucose 168 H Calculated Osmolal ity 286 Calcium 7.9 L Phosphorus 3.0 Magnesium 1.9 Total Bilirubin 0.3 AST 10 ALT 13 Alkaline Phosphata se 43 Total Protein 5.7 L Albumin 3.4 L Globulin 2.3 Vitals: Last Vital Signs Temp 98.8 F 01/22/21 11:01 Pulse 64 01/22/21 11:01 Resp 18 01/22/21 11:01 BP 155/73 01/22/21 11:01 Pulse Ox 94 01/22/21 11:01 Discharge Plan Discharge Patient Disposition: Home Health Service Condition: Stable Prescriptions: Continued ginseng 500 mg Tablet 500 mg PO QAM RF: 0 Aspir-81 81 mg Tablet,Delayed Release (Dr/Ec) 81 mg PO QAM RF: 0 [place] Oil Capsule 1,000 mg PO QAM RF: 0 Cinnamon 500 mg Capsule 1,000 mg PO QAM RF: 0 turmeric root extract 500 mg Capsule 500 mg PO QAM RF: 0 Caltrate 600 plus D 600 mg (1,500 mg)-800 unit Tablet,Chewable 1 tab PO QAM RF: 0 Primatene Mist 0.125 mg/actuation Hfa Aerosol Inhaler 2 puff INHALATION PRN RF: 0 Garlique 1 tab PO QAM RF: 0 Vitamin D3 1 cap PO QAM RF: 0 Discharge Orders: Discharge Order (Routine); Ordered 01/22/21 Ordered By: Aureliano Benites Other Ambulatory Orders: DME: Walker (Order) Location: None Selected Ordered By: Aureliano Benites Referrals: Dg Key DO [Physician] - 2 weeks Discharge Diet: Regular Discharge Activity: Resume usual activity Patient Instructions: Opioid Safety Activity Restrictions/Additional Instructions: You are being discharged from the hospital today during which time you have been under the care of Dr. Key. You had a left femoral neck fracture. You were treated for this injury with cannulated screws left hip. You may resume you normal diet (including any special diets as directed by your primary doctor) as well as your home medications. You should follow up with you primary doctor if you have any questions regarding medication you took prior to your stay in the hospital. You may take your pain medication as prescribed. After the first few days, take your pain medication as needed. Do not drive or drink alcohol while taking your pain medication. Your injury may increase your risk of developing a blood clot,or DVT, in your arm or leg. This could potentially dislodge and travel to your lungs and become a life threatening condition called apulmonary embolus,or PE. You have been prescribed aspirin to be taken to prevent this. Frequent movement of the legs will also help prevent this from occurring. If you develop any new or worsening cough, chestpain, bloody sputum or shortness of breath, call 911 or go to the EmergencyRoom. Always keep your surgical incision/dressing clean and dry. If you experience increasing pain at your incision site, redness, swelling, increasing discharge, foul odors, or fevers (greater than 100.4), night sweats or chills you should call the office at the above number. If you feel this is an emergency you should be evaluated in the Emergency Department of a nearby hospital. Orthopedic Patient Instructions Summary: Weight Bearing: Weight-bear as tolerated Activity: Weight-bear as tolerated. Diet: Regular. Wound Care: Keep dressing clean and dry. Anticoagulation: Aspirin Pain Medication: Take only as needed. Ice, rest and elevation will be of great benefit. Please plan to follow-up [facility] Dr Key in 2 weeks. You will need to call the clinic [phone] to schedule this visit. Thank you far allowing me to participate in your care. Do not hesitate to call the office with any questions or concerns. Discharge Attestations Time Spent in Discharge Care*: other Quality Metrics Clinical Quality Measures During this hospital stay, did patient experience: None Coding Level of Care Code Acute [facility] note Diagnoses Hip fracture, left S72.002A Encounter type: initial encounter Fracture type: closed
== END 2021-01-22 16:38 | disposition home health service (06) | DRG 482 ==
LOC: ER 20:56 → MEDSURG 21:19
PROVIDERS: Orthopaedic Surgery; Admitting Provider Internal Medicine; Emergency Provider Emergency Medicine; Visit Provider Family Medicine
PROC: 0QS734Z Reposition Left Upper Femur with Internal Fixation Device, Percutaneous Approach (ICD-10-PCS; CPT 27236; principal; 2021-01-20 19:05)
DX: S72.002A Fracture of unspecified part of neck of left femur, initial encounter for closed fracture (principal); W10.9XXA Fall (on) (from) unspecified stairs and steps, initial encounter; Y92.019 Unspecified place in single-family (private) house as the place of occurrence of the external cause; W57.XXXA Bitten or stung by nonvenomous insect and other nonvenomous arthropods, initial encounter
CPT/HCPCS: 36415; 51702; 71045; 72192; 73502; 73552; 76000; 80053; 81003; 83735; 84100; 85025; 85610; 85730; 93005; 96372; 96374; 96375; 97116; 97161; 97165; 97530; 99285; C1713; J1100; J1650; J1885; J2405; J2704; J3010; J3490; J7030

== ENCOUNTER → 2021-04-10 14:50 | Outpatient (BNVA) | payer MEDICARE, SELFPAY | PROVIDERS: Visit Provider Orthopaedic Surgery | DX: Z48.89 Encounter for other specified surgical aftercare (principal); M25.552 Pain in left hip | CPT/HCPCS: 73502 ==

== ENCOUNTER 2021-08-04 15:39 | Outpatient (CLI) | payer MEDICARE, SELFPAY ==
--- NOTE | 2021-08-04 15:53 | XRR_ITS ---
PROCEDURE INFORMATION: Exam: XR Right Wrist Exam date and time: 08/04/2021 3:53 PM Age: 70 years old Clinical indication: Pain; Hand; Right; Additional info: RT. Hand pain TECHNIQUE: Imaging protocol: XR Right wrist. Views: 1 or 2 views. COMPARISON: No relevant prior studies available. 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 Soft tissues: Normal. 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 Radiation Dose CTDIVOL = (mGy): DLP = (mGy-cm)
--- NOTE | 2021-08-04 15:54 | XRR_ITS ---
PROCEDURE INFORMATION: Exam: XR Right Hand Exam date and time: 08/04/2021 3:54 PM Age: 70 years old Clinical indication: Pain; Hand; Right; Additional info: RT. Hand pain TECHNIQUE: Imaging protocol: XR Right hand. Views: 1 or 2 views. COMPARISON: No relevant prior studies available. FINDINGS: Bones/joints: [id number]-dy-mkhxrvin diffuse distal interphalangeal joint osteoarthritis. Soft tissues: Normal. XR/XR hand RT 2V [id number] IMPRESSION: Kkus-la-knsrpdzj diffuse distal interphalangeal joint osteoarthritis. Radiation Dose CTDIVOL = (mGy): DLP = (mGy-cm)
== END 2021-08-04 15:40 | disposition home or self-care (01) ==
PROVIDERS: PCP Family Medicine; Visit Provider Family Medicine
DX: M19.041 Primary osteoarthritis, right hand (principal); M19.031 Primary osteoarthritis, right wrist
CPT/HCPCS: 73100; 73120

== ENCOUNTER 2022-07-08 13:41 | Outpatient (CLI) | payer MEDICARE, SELFPAY ==
--- NOTE | 2022-07-08 13:53 | XRR_ITS ---
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 Views: 3 or more views. 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 Widening of the scapholunate interval which can be a normal variant, although disruption of the scapholunate ligament cannot be ruled out. Soft tissues: Normal. XR/XR hand RT min 3V* [id number] IMPRESSION: 1. 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 2. Widening of the scapholunate interval which can be a normal variant, although disruption of the scapholunate ligament cannot be ruled out.
== END 2022-07-08 13:42 | disposition home or self-care (01) ==
LOC: RAD 13:43
PROVIDERS: PCP Family Medicine; Visit Provider Family Medicine
DX: M79.641 Pain in right hand (principal); E11.9 Type 2 diabetes mellitus without complications; E78.5 Hyperlipidemia, unspecified; M19.041 Primary osteoarthritis, right hand
CPT/HCPCS: 73130; 80053; 80061; 83036; 85025; 85651; 86140

== ENCOUNTER 2022-09-14 14:34 | Outpatient (CLI) | payer MEDICARE, SELFPAY ==
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
== END 2022-09-14 14:35 | disposition home or self-care (01) ==
LOC: RAD 14:38
PROVIDERS: PCP Family Medicine; Visit Provider Family Medicine
DX: M25.511 Pain in right shoulder (principal)
CPT/HCPCS: 73030; 88304

== ENCOUNTER → 2023-01-05 09:10 | Outpatient (BNVA) | payer MEDICARE, SELFPAY | PROVIDERS: PCP Family Medicine; Visit Provider Family Medicine | DX: E11.9 Type 2 diabetes mellitus without complications (principal); E78.5 Hyperlipidemia, unspecified; R53.83 Other fatigue; M25.511 Pain in right shoulder; R53.1 Weakness | CPT/HCPCS: 80053; 80061; 82306; 82607; 83036; 83880; 84443; 85025; 86140 ==

== ENCOUNTER 2023-01-22 14:32 | Outpatient (CLI) | payer MEDICARE, SELFPAY ==
--- NOTE | 2023-01-22 14:30 | MR_ITS ---
WS: [id number] EXAMINATION: MR shoulder RT wo con* [id number] ORDER DATE: 01/22/2023 3:34 PM COMPARISON: None. HISTORY: right shoulder pain CONTRAST: None. TECHNIQUE: Axial T2 STAR, coronal proton density fat sat, sagittal T2 fat sat, sagittal proton densit y fat sat, axial proton density fat sat, coronal T2 fat sat, and coronal T1 performed. After contrast , axial T1 fat sat, coronal T1 fat sat, and sagittal T1 fat sat were performed. FINDINGS: Advanced osteoarthritis RIGHT AC joint with fluid and edema. Associated synovial thickening. Subacrom ial subdeltoid fluid. Mild narrowing of the subacromial space. Mild subacromial spurring. Impingement on the distal supraspinatus. Full-thickness distal anterior supraspinatus tear with tendon retractio n measuring 5.8 mm. Tiny tear at the supraspinatus insertion. Normal infraspinatus. Normal teres minor. Subscapularis tendon appears intact. Normal biceps tendon i n the bicipital groove. Small amount of fluid in the subcoracoid bursa. Degenerative fraying of the g lenoid labrum. Moderate degenerative arthritis glenohumeral joint. Intra-articular biceps tendon is n ormal. MR/MR shoulder RT wo con* [id number] IMPRESSION: 1. Advanced degenerative arthritis AC joint with fluid and synovial thickening . Small amount of subacromial subdeltoid fluid. 2. Full-thickness supraspinatus tear with 5.8 mm of tendon retraction. Additio nal tiny tear at the supraspinatus insertion. 3. Rotator cuff is otherwise intact. 4. Normal biceps tendon in the bicipital groove. 5. Normal intra-articular biceps tendon. 6. Moderate to advanced degenerative arthritis of the glenohumeral joint.
== END 2023-01-22 14:33 | disposition home or self-care (01) ==
LOC: RAD 14:38
PROVIDERS: PCP Family Medicine; Visit Provider Family Medicine
DX: M19.011 Primary osteoarthritis, right shoulder (principal); M75.121 Complete rotator cuff tear or rupture of right shoulder, not specified as traumatic
CPT/HCPCS: 73221

== ENCOUNTER → 2023-03-04 13:40 | Outpatient (BNVA) | payer MEDICARE, SELFPAY | PROVIDERS: PCP Family Medicine; Referring Provider Family Medicine; Visit Provider Student in an Organized Health Care Education/Training Program | DX: M75.101 Unspecified rotator cuff tear or rupture of right shoulder, not specified as traumatic (principal); M19.011 Primary osteoarthritis, right shoulder | CPT/HCPCS: 99204 ==

== ENCOUNTER → 2023-07-13 09:47 | Outpatient (BNVA) | payer MEDICARE, SELFPAY | PROVIDERS: PCP Family Medicine; Visit Provider Family Medicine | DX: E11.9 Type 2 diabetes mellitus without complications (principal); E78.5 Hyperlipidemia, unspecified | CPT/HCPCS: 80053; 80061; 83036 ==

== ENCOUNTER → 2023-10-14 11:02 | Outpatient (BNVA) | payer MEDICARE, SELFPAY | PROVIDERS: PCP Family Medicine; Visit Provider Family Medicine | DX: E78.5 Hyperlipidemia, unspecified (principal); E11.9 Type 2 diabetes mellitus without complications | CPT/HCPCS: 80053; 80061; 83036 ==

== ENCOUNTER → 2024-01-13 11:42 | Outpatient (BNVA) | payer MEDICARE, SELFPAY | PROVIDERS: PCP Family Medicine; Visit Provider Family Medicine | DX: E78.5 Hyperlipidemia, unspecified (principal); E11.9 Type 2 diabetes mellitus without complications; Z79.899 Other long term (current) drug therapy | CPT/HCPCS: 80053; 80061; 83036; 85025 ==

== ENCOUNTER → 2024-04-13 10:16 | Outpatient (BNVA) | payer MEDICARE, SELFPAY | PROVIDERS: PCP Family Medicine; Visit Provider Family Medicine | DX: E11.9 Type 2 diabetes mellitus without complications (principal); E78.5 Hyperlipidemia, unspecified | CPT/HCPCS: 80053; 83036 ==

== ENCOUNTER → 2024-07-13 15:02 | Outpatient (BNVA) | payer MEDICARE, SELFPAY | PROVIDERS: PCP Family Medicine; Visit Provider Family Medicine | DX: E11.9 Type 2 diabetes mellitus without complications (principal); E78.5 Hyperlipidemia, unspecified | CPT/HCPCS: 80053; 83036; 85025 ==

== ENCOUNTER → 2024-10-11 09:35 | Outpatient (BNVA) | payer MEDICARE, SELFPAY | PROVIDERS: PCP Family Medicine; Visit Provider Family Medicine | DX: E78.5 Hyperlipidemia, unspecified (principal); E11.9 Type 2 diabetes mellitus without complications | CPT/HCPCS: 80053; 80061; 83036 ==

== ENCOUNTER → 2025-01-08 12:50 | Outpatient (BNVA) | payer MEDICARE, SELFPAY | PROVIDERS: PCP Family Medicine; Visit Provider Family Medicine | DX: E78.5 Hyperlipidemia, unspecified (principal); E11.9 Type 2 diabetes mellitus without complications | CPT/HCPCS: 80053; 83036 ==

== ENCOUNTER 2025-04-13 13:32 | Emergency (ER) | payer MEDICARE, SELFPAY ==
[2025-04-13 13:36] VITALS: BP 150/71; PULSE 74; RESP 16; TEMP 36.8; O2SAT 98; BMI 19.3
--- OUTSIDE RECORDS SUMMARY | 2025-04-13 13:37 | XMS_ITS | Patient Health Record ---
Author Organization [facility] Main Address [address] [place] [address] Care Team Providers Care Developmental Mathematics Instructor Name Role Phone Jimmy Lewis Primary Care Provider [phone] REASON FOR REFERRAL No Information IMMUNIZATIONS Vaccine Route Administration Date Status Comme nts PPD ID Intradermal 08/23/2018 Administered *PPD Reading Negative Unknown 08/25/2018 Administered PLAN OF TREATMENT No Information
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
[2025-04-13] MEDS: tetanus-dipt-pertussis 0.5 mL SDV IM (15:05)
[2025-04-13 15:20] VITALS: BP 143/73; PULSE 68; RESP 16; O2SAT 99
== END 2025-04-13 16:13 | disposition home or self-care (01) ==
PROVIDERS: Emergency Provider Physician Assistant; PCP Family Medicine
DX: S60.812A Abrasion of left wrist, initial encounter (principal); S00.83XA Contusion of other part of head, initial encounter; V89.2XXA Person injured in unspecified motor-vehicle accident, traffic, initial encounter; Z79.82 Long term (current) use of aspirin; E11.9 Type 2 diabetes mellitus without complications; E78.5 Hyperlipidemia, unspecified
CPT/HCPCS: 70450; 70486; 72125; 73110; 73130; 90715; 99284

== ENCOUNTER → 2025-04-26 08:05 | Outpatient (BNVA) | payer MEDICARE, SELFPAY | PROVIDERS: PCP Family Medicine; Visit Provider Family Medicine | DX: E78.5 Hyperlipidemia, unspecified (principal); E11.9 Type 2 diabetes mellitus without complications | CPT/HCPCS: 80053; 80061; 83036 ==

== ENCOUNTER → 2025-08-15 09:35 | Outpatient (BNVA) | payer MEDICARE, SELFPAY | PROVIDERS: PCP Family Medicine; Visit Provider Family Medicine | DX: E78.5 Hyperlipidemia, unspecified (principal); E11.9 Type 2 diabetes mellitus without complications | CPT/HCPCS: 80053; 80061; 83036; 85025 ==